=== PATIENT | male | born 1995 | race Two or more races ===

== ENCOUNTER 2016-10-09 02:11 | Emergency (ER) | payer MEDICAID ==
[~2016-10-09] VITALS: Ht 180.3 cm; Wt 86.2 kg
[2016-10-09 02:15] VITALS: BP 136/70
== END 2016-10-09 04:10 | disposition home or self-care (01) ==
LOC: ER 02:11
DX: S00.81XA Abrasion of other part of head, initial encounter (principal); W18.00XA Striking against unspecified object with subsequent fall, initial encounter; Y93.89 Activity, other specified; Y92.89 Other specified places as the place of occurrence of the external cause; Y99.8 Other external cause status
CPT/HCPCS: 99281; A4606; Z7610; Z7502

== ENCOUNTER 2016-12-03 13:36 | Emergency (ER) | payer SELFPAY ==
[~2016-12-03] VITALS: Ht 180.3 cm; Wt 84.4 kg
[2016-12-03 13:48] VITALS: BP 130/75
== END 2016-12-03 14:12 | disposition home or self-care (01) ==
LOC: ER 13:43
DX: M25.562 Pain in left knee (principal)
CPT/HCPCS: A4606; Z7610